=== PATIENT | male | born 1985 | race Caucasian/White ===

== ENCOUNTER 2022-08-26 16:40 | Outpatient (REF) | payer BC, SELFPAY ==
[2022-08-26 14:59] LABS: HCT 47.3 % (40.0-50.0); HGB 15.9 g/dL (13.5-17.5); MCH 30.9 pg (27.0-33.0); MCHC 33.6 % (32.0-36.0); MCV 92 fL (80-95); MPV 9.7 fL (8.0-11.0); Platelet Count 261 10^3/uL (130-400); RBC 5.15 10^6/uL (4.36-5.78); RDW 12.1 % (11.8-14.1); RDW-SD 41.1 fL; WBC 5.83 10^3/uL (4.4-10.8)
[2022-08-26 15:16] LABS: Anion Gap 9.7 mmol/L (3-11); BUN 15 mg/dL (7-18); CO2 27.3 mmol/L (21.0-32.0); Calcium 9.6 mg/dL (8.5-10.1); Chloride 103 mmol/L (98-107); Glucose 90 mg/dL (74-106); Potassium 4.1 mmol/L (3.5-5.1); Sodium 140 mmol/L (136-145)
[2022-08-26 15:40] LABS: Vitamin D 25 Total 32.2 ng/mL (30-100)
[2022-08-27 10:20] LABS: HIV-1/2 Ag & Ab Screen Negative (Negative)
[2022-08-27 10:35] LABS: Hepatitis C Ab w Rflx HCV PCR Negative (Negative)
[2022-08-27 19:00] LABS: Chlamydia Result Negative (Negative); GC Result Negative (Negative)
[2022-08-28 13:01] LABS: HSV Type 1 Ab, IgG Negative (Negative); HSV Type 2 Ab, IgG Negative (Negative)
== END 2022-08-26 16:41 | disposition home or self-care (01) ==
LOC: NCHCN 16:40
PROVIDERS: Visit Provider Registered Nurse
DX: Z00.00 Encounter for general adult medical examination without abnormal findings (principal); Z11.3 Encounter for screening for infections with a predominantly sexual mode of transmission; Z11.4 Encounter for screening for human immunodeficiency virus [HIV]; Z11.59 Encounter for screening for other viral diseases; F32.89 Other specified depressive episodes
CPT/HCPCS: 80048; 82306; 85027; 86803; 87389; 87491; 87591; 86695; 86696

== ENCOUNTER 2022-09-09 14:00 | Outpatient (REF) | payer BC, SELFPAY | END 2022-09-09 14:01 | disposition home or self-care (01) | LOC: NCHCN 14:00 | PROVIDERS: Visit Provider Registered Nurse | DX: F32.89 Other specified depressive episodes (principal); L65.9 Nonscarring hair loss, unspecified; Z00.00 Encounter for general adult medical examination without abnormal findings | CPT/HCPCS: 84443 ==

== ENCOUNTER 2024-05-30 09:19 | Outpatient (REF) | payer BC, SELFPAY ==
[2024-05-30 14:34] LABS: HCT 42.7 % (40.0-50.0); MCH 30.9 pg (27.0-33.0); MCHC 32.8 % (32.0-36.0); MCV 94 fL (80-95); MPV 9.6 fL (8.0-11.0); Platelet Count 222 10^3/uL (130-400); RBC 4.53 10^6/uL (4.36-5.78); RDW 12.2 % (11.8-14.1); RDW-SD 42.2 fL; WBC 6.48 10^3/uL (4.4-10.8)
[2024-05-30 14:52] LABS: ALT 20 U/L (16-63); AST 18 U/L (15-37); Albumin 3.6 g/dL (3.4-5.0); Alkaline Phosphatase 50 U/L (46-116); Anion Gap 7.1 mmol/L (3-11); BUN 16 mg/dL (7-18); Bilirubin, Total 0.25 mg/dL (0.2-1.0); CO2 30.9 mmol/L (21.0-32.0); CREATININE 1.1 mg/dL (0.70-1.30); Calcium 9.2 mg/dL (8.5-10.1); Chloride 106 mmol/L (98-107); Estimated GFR 87.03 (mL/min/1.73m2); Glucose 112 mg/dL (74-106); Potassium 3.9 mmol/L (3.5-5.1); Sodium 144 mmol/L (136-145); Total Protein 7.2 g/dL (6.4-8.2)
== END 2024-05-30 09:20 | disposition home or self-care (01) ==
LOC: NCHCN 09:19
PROVIDERS: PCP Family Medicine; Visit Provider Family Medicine
DX: I10 Essential (primary) hypertension (principal); R53.83 Other fatigue
CPT/HCPCS: 80053; 85027